=== PATIENT | female | born 1960 | race Caucasian/White ===

== ENCOUNTER 2023-05-28 08:32 | Outpatient (CLI) | payer BC, SELFPAY | END 2023-05-28 08:33 | disposition home or self-care (01) | LOC: NFLDREF 06-07 13:50 | PROVIDERS: PCP Family Medicine; Visit Provider Family Medicine | DX: Z00.00 Encounter for general adult medical examination without abnormal findings (principal); E66.3 Overweight; Z13.6 Encounter for screening for cardiovascular disorders | CPT/HCPCS: 80048; 80061 ==

== ENCOUNTER 2024-08-28 09:41 | Outpatient (CLI) | payer OTHER, SELFPAY | END 2024-08-28 09:42 | disposition home or self-care (01) | LOC: LKVREF 09:44 | PROVIDERS: PCP Family Medicine; Visit Provider Family Medicine | DX: Z00.00 Encounter for general adult medical examination without abnormal findings (principal); E78.00 Pure hypercholesterolemia, unspecified | CPT/HCPCS: 80053; 80061 ==

== ENCOUNTER 2024-09-16 07:05 | Outpatient (CLI) | payer OTHER, SELFPAY ==
--- NOTE | 2024-09-16 07:15 | CRLHL7_ITS ---
For Patients: As a result of the Cures Act, medical imaging exams and procedure reports are released immediately into your electronic medical record. You may view this report before your referring provider. If you have questions, please contact your health care provider. BILATERAL BREAST MRI WITHOUT GADOLINIUM CLINICAL HISTORY: Personal history of left breast cancer diagnosed in 2014 and treated with mastectomy. Bilateral mastectomy and reconstruction were performed. No current breast related concerns. Evaluate implant integrity. COMPARISON: None. CONTRAST: None. TECHNIQUE: The patient was positioned prone and scanned using a breast coil. Several imaging sequences of both breasts were obtained using 1-1.5 mm thick slices with no gap including T2-weighted and silicone selective sequences in axial and sagittal planes. BILATERAL BREAST MRI FINDINGS: Postsurgical changes of bilateral mastectomies with retropectoral implant reconstruction. There is intracapsular rupture of the right silicone implant. The left implant is intact. There is no extra capsular silicone bilaterally. No abnormal nor mal morphology lymph nodes. IMPRESSIONS AND RECOMMENDATIONS: Intracapsular rupture of the right silicone implant. The left implant is intact. No extracapsular silicone. Note: This study is designed to evaluate for implant rupture and is not a breast cancer screening study. BI-RADS Category N/A Dictated by Zabrina Bauer MD @ 09/18/2024 1:58:32 PM/horacio JOSE JUAN/Dictated by: Zabrina Bauer MD @ 09/18/2024 1:58:00 PM (Electronically Signed)
== END 2024-09-16 07:06 | disposition home or self-care (01) ==
LOC: MRI 07:07
PROVIDERS: PCP Family Medicine; Visit Provider Family Medicine
DX: Z98.82 Breast implant status (principal); Z85.3 Personal history of malignant neoplasm of breast; Z90.13 Acquired absence of bilateral breasts and nipples
CPT/HCPCS: 77047

== ENCOUNTER 2025-03-18 10:27 | Outpatient (CLI) | payer OTHER, SELFPAY | END 2025-03-18 10:28 | disposition home or self-care (01) | PROVIDERS: PCP Family Medicine; Visit Provider Family Medicine | DX: R68.82 Decreased libido (principal); Z01.818 Encounter for other preprocedural examination | CPT/HCPCS: 80048; 84403 ==